=== PATIENT | male | born 1985 | race African-American/Black ===

== ENCOUNTER 2017-08-03 17:35 | Emergency (ER) | payer OTHER ==
[~2017-08-03] VITALS: Ht 175.3 cm; Wt 74.8 kg
[~2017-08-03 17:35] MED LIST: CARAFATE 1 GM TA1 G1 PO; CIPROFLOXACIN500 M1 PO; CITRATE OF MAG296 ML PO; COLACE100 MG PO; FAMOTIDINE 20 M20 MG PO; HYDROCODONE-ACE15 ML PO; K-DUR 20 MEQ T20 MEQ PO; MIRALAX17 GM PO; NOHOMEMEDICATIONS; NORCO 5-325 TA1 EACH PO; PEPCID40 MG PO; PHENERGAN 25 MG25 M1 PO; PREVPAC PATIEN1 EACH; PRILOSEC 20 MG20 MG PO; PROMETHAZINE-C120 ML PO; TRINATAL ULTRA1 EACH PO; VICODIN 5-3001 EACH PO; VITAMIN B-1100 M1 PO; ZOFRAN ODT4 MG PO
[2017-08-03 18:06] LABS: URINE BLOOD NEGATIVE (Negative); URINE CLARITY CLEAR; URINE COLOR YELLOW; URINE GLUCOSE-RANDOM* NEGATIVE (Negative); URINE KETONES 2+ (Negative); URINE LEUKOCYTES-REFLEX NEGATIVE (Negative); URINE NITRITE-REFLEX NEGATIVE (Negative); URINE PROTEIN (DIPSTICK) NEGATIVE (Negative)
[2017-08-03 18:10] LABS: ICTOTEST (BILI CONFIRMATORY) Negative (Negative); URINE BILIRUBIN NEGATIVE (Negative)
[2017-08-03 19:34] LABS: ABSOLUTE NEUTROPHILS 4.8 thou/uL (1.4-8.2); BASOPHILS 0.3 % (0.0-2.0); EOSINOPHILS 0.1 % (0.0-3.0); HEMATOCRIT 42.8 % (42.0-52.0); HEMOGLOBIN 13.8 gm/dL (14.0-18.0); LYMPHOCYTES 17.6 % (24.0-44.0); MCH 22.2 pg (26.0-34.0); MCHC 32.3 g/dL (28.0-37.0); MCV 68.7 fL (80.0-100.0); MONOCYTES 7.5 % (1.0-8.0); PLATELET COUNT 227 thou/uL (150-400); POLYS 74.5 % (36.0-66.0); RBC 6.23 mil/uL (4.50-6.00); RDW 15.4 % (10.5-14.5); WBC 6.4 thou/uL (4.0-11.0)
[2017-08-03 19:47] LABS: CALCIUM 8.6 mg/dL (8.5-10.1); CREATININE 0.8 mg/dL (0.7-1.3); POTASSIUM 3.6 mmol/L (3.5-5.1)
[2017-08-03 19:52] LABS: TOTAL BILIRUBIN 0.6 mg/dL (<0.1-1.0); TOTAL PROTEIN 6.1 g/dL (6.4-8.2)
[2017-08-03 19:53] LABS: ALBUMIN 3.1 g/dL (3.4-5.0); DIRECT BILIRUBIN 0.2 mg/dL (<0.1-0.3); TOTAL BILIRUBIN 0.6 mg/dL (<0.1-1.0); TOTAL PROTEIN 6.1 g/dL (6.4-8.2)
[2017-08-03] MEDS ORDERED: PHENERGAN 25 MG25 M1 PO (20:47)
[2017-08-03 21:09] VITALS: BP 138/80
== END 2017-08-03 21:11 | disposition home or self-care (01) ==
LOC: ER 17:35
PROVIDERS: Emergency Medicine; Physician Assistant
DX: R11.2 Nausea with vomiting, unspecified (principal); F17.210 Nicotine dependence, cigarettes, uncomplicated